=== PATIENT | male | born 1970 | race Hispanic/Latino ===

== ENCOUNTER → 2024-06-24 | Day surgery (SDC) | payer OTHER ==
[~2024-06-24] MED LIST: ALBUTEROL/IPRATROPIUM 3 ML NEB ONE; FLUMAZENIL 0.5MG/ 5ML VIAL ONE; FUROSEMIDE INJ 10 MG/ML 4 ML VIAL ONE; GLYCOPYRROLATE INJ 0.2 MG/ML VIAL ONE; LIDOCAINE HCL 2% LOCAL INJ 5 ML SDV VIAL INJ ONE; MAGNESIUM OXID400 MG PO; ONDANSETRON HCL INJ 2MG/ML 2ML 2 MG/ML VIAL ONE; PROPOFOL IV EMULSION 10 MG/ML 20 ML VIAL ONE; VITAMIN C1000 MG PO; ZINC CHELATED50 M2 PO
[2024-06-24] MEDS: LACTATED RINGER'S 1,000 ML ONE (08:22)
[2024-06-24 11:15] VITALS: TEMP 97.5
[2024-06-24] MEDS: ALBUTEROL/IPRATROPIUM 3 ML NEB INH ONE (11:45)
[2024-06-24] MEDS: ONDANSETRON HCL INJ 2MG/ML 2ML 2 MG/ML VIAL IV ONE (12:44)
[2024-06-24 12:45] VITALS: BP 120/80; PULSE 81; RESP 16; O2SAT 98
== END | disposition home or self-care (01) ==
LOC: OR 08:06
PROVIDERS: ATTEND Internal Medicine Gastroenterology
DX: Z09 Encounter for follow-up examination after completed treatment for conditions other than malignant neoplasm (principal); D12.4 Benign neoplasm of descending colon; K57.30 Diverticulosis of large intestine without perforation or abscess without bleeding; K64.8 Other hemorrhoids; E78.5 Hyperlipidemia, unspecified; M54.9 Dorsalgia, unspecified; F41.9 Anxiety disorder, unspecified; Z01.810 Encounter for preprocedural cardiovascular examination; Z87.891 Personal history of nicotine dependence
CPT/HCPCS: 45385; 93005; J1940; J2001; J2405; J2704; J7121; 45378